=== PATIENT | male | born 1950 | race Caucasian/White ===

== ENCOUNTER → 2017-07-27 | Outpatient (CLI) | payer OTHER ==
[~2017-07-27] VITALS: Ht 172.7 cm; Wt 83.9 kg
[~2017-07-27] MED LIST: ALLEGRA180 MG OR; ASPIR 8181 M1 PO; CRESTOR20 MG PO; DIOVAN160 MG OR; FISHOIL OR; FLOVENT DISKUS50 MCG IH; HYDROCHLOROTH12.5 M1 PO; INVOKANA300 MG PO; JANUMET 50-1,01 EACH OR; MAGOX 400400 MG PO; METFORMIN HCL500 MG PO; OMEPRAZOLE20 M2 OR; PROSCAR 5MG TABL5 M1 OR; RELAFEN750 MG OR; SIMVASTATIN40 MG OR; TOPROL XL25 MG PO; TRAZODONE HCL100 MG PO; ZINC CHELATE50 MG PO
--- NOTE | ~2017-07-27 | HPC ---
[facility] [address] [place] [address] PAIN MANAGEMENT CONSULTATION Name: TABBYОЛЕГ Noel Room #: REG JOY Dominick#: [id number] Admission: 07/27/17 Attend Phys: Ashutosh Rashid DO Discharge: Date of : 48 Report #: [id number] THIS REPORT FOR: //name// CC: Ashutosh Varela MD DATE OF SERVICE: 07/27/2017 REFERRING PHYSICIAN: Anderson Varela M.D. CHIEF COMPLAINT: Low back pain, right lower extremity pain and paresthesias. HISTORY OF PRESENT ILLNESS: As you know, the patient is a very pleasant 66-year-old male who has reported low back pain, right lower extremity pain with paresthesias that began in May 2017. The patient denies injury or trauma that may have led to symptom development. The patient has trialed conservative medical therapy. Stretching exercises at home but this was ineffective at pain control. He ultimately discussed his case further with his primary care physician who indicated that he should be seen by pain management as there was some concern of a lumbar radiculopathy. The patient indicates today pain is continuous, describes the pain as shooting, aching, places current pain score 7/10, daily average is 7/10, worst pain has been is 10/10. The patient states the pain is present throughout the day. Nothing appears to improve and nothing appears to change it. He has been referred to our service to discuss treatment options for suspected lumbar radiculopathy. PAST MEDICAL HISTORY: 1. Diabetes mellitus type 2. 2. Hypertension. 3. Degenerative joint disease. 4. Osteoarthritis. PAST SURGICAL HISTORY: See attached in chart. SOCIAL HISTORY: The patient denies tobacco, alcohol, IV or illicit drug use. He is retired, retired years ago. He is not receiving workmen's compensation nor is trying to obtain disability benefits. Unaccompanied today. REVIEW OF SYSTEMS: Positive for cataracts, non-insulin dependent diabetes, hypertension, dyslipidemia, low back pain and gastroesophageal reflux disease. All other review of systems negative per 12-point review of systems other than those listed in history of present illness. PAIN IMPACT SCORE: /70 indicating [id number] interference of daily activities secondary to pain. [facility] [address] [place] [address] PAIN MANAGEMENT CONSULTATION Name: TABBYОЛЕГ [id number] Admission: 07/27/17 Attend Phys: Ashutosh Rashid DO Discharge: Date of : 48 Report #: [id number] ALLERGIES: No known drug allergies. CURRENT MEDICATIONS: Trazodone 100 mg p.o. at bedtime, metformin 500 mg twice a day, hydrochlorothiazide 12.5 mg once a day, Invokana 300 mg once a day, aspirin 81 mg per day, magnesium oxide 400 mg a day, zinc 50 mg once a day, lovastatin 20 mg per day and metoprolol 25 mg per day. IMAGING DATA: No imaging available. PHYSICAL EXAMINATION: VITAL SIGNS: Blood pressure 138/72, pulse is 63 and respiratory rate 16 and unlabored. The patient is 97% on room air. Height 5 feet 8 inches tall, weight 185 pounds and BMI calculated 28.1. GENERAL: Well-developed, well-nourished, well-hydrated, 66-year-old male. He appears his stated age. He is placing current pain score around 7/10. HEENT: Normocephalic and atraumatic. Pupils equal, round and reactive to light. Extraocular muscles are intact. Sclerae nonicteric without injection. NEUROLOGICAL: Cranial nerves 2 through 12 grossly intact. LUNGS: Clear. No wheeze, rhonchi or rales. CARDIOVASCULAR: Regular. No appreciable gallop or rub. ABDOMEN: Soft, nontender and nondistended. Normoactive bowel sounds. EXTREMITIES: Show no clubbing, no cyanosis and no edema. MUSCULOSKELETAL: Lower extremity strength appears equal and symmetrical 5/5, intact to light touch from L1 through S2 dermatomes. Seated straight leg raising negative. Supine straight leg raising positive right. Gal's test negative. Modified Gaenslen's positive for axial low back pain. Ankle clonus negative. Babinski is negative. Gait slightly antalgic favoring right lower extremity over left. The patient able to toe walk and heel walk without complications. Deep tendon reflexes at patella and Achilles equal and symmetrical. ASSESSMENT: 1. Symptomatic lumbar radiculopathy. 2. Lumbosacral spondylosis with radiculopathy. 3. Foraminal stenosis of the lumbar spine. 4. Chronic intractable pain. PLAN: 1. The patient has been referred to our clinic by his primary care physician, Dr. Anderson Varela for evaluation for suspected lumbar radiculopathy. Given the findings on physical exam and the history he provides, the description the patient uses in regards to the pain as well as the distribution of the pain itself like source of the patient's pain is lumbar radiculopathy. I do not have imaging available to determine the extent of pathology that is present, though the distribution of symptoms would correlate to an L5 dermatomal distribution on [address] [address] PAIN MANAGEMENT CONSULTATION Name: ОЛЕГ MCNAIR Room #: REG CLI Dominick#: [id number] Admission: 07/27/17 Attend Phys: Ashutosh NoelYossi Rashid DO Discharge: Date of : 48 Report #: [id number] the right. The patient and I discussed at length today the treatment options for his suspected lumbar radiculopathy. We discussed physical therapy, stretching exercise and core strengthening. We discussed medication management, the addition of a neuropathic pain medication and consistent nonsteroidal anti-inflammatory. We discussed epidural injections under fluoroscopic guidance for which the patient was referred to our clinic. We also discussed spinal cord stimulator and surgical options. After reviewing risks and benefits of all proposed treatment options, the patient chose to begin with an epidural injection under fluoroscopic guidance. The patient was advised risks and benefits of a lumbar epidural injection. These risks include but not necessarily limited to bleeding, bruising, infection, worsening pain, no relief of pain, also risk of temporary or permanent muscle weakness, temporary or permanent nerve damage, possible paralysis and . The patient states understood and wished to proceed. 2. No medication changes were made at today's visit. The patient to continue current medical therapy as previously prescribed. 3. The patient to return to our clinic in one month. At that time, review the efficacy of today's epidural injection and determine if next in the series of epidural injections would be necessary. 4. We wish to thank Dr. Varela for the referral of this patient to our clinic. We will keep you apprised of his response to treatment as we address his ongoing lumbar radicular symptoms. Again, we wish to thank you for the opportunity to participate in his care. PROCEDURE NOTE DESCRIPTION OF PROCEDURE: Lumbar epidural steroid injection under fluoroscopic guidance. This is the first procedure of the first series that the patient is undergoing. After obtaining written consent, the patient was taken back to the fluoroscopy suite, placed in a prone position with pillow under the abdomen to decrease lumbar lordosis. The skin overlying the lumbosacral area was then prepped and draped in aseptic fashion. The lumbar vertebral interspace was then identified by AP fluoroscopy. The skin and subcutaneous tissue overlying the target site of injection was anesthetized with 3 mL 1% lidocaine. A 20-guage 3-1/2 inch Tuohy needle was then advanced under fluoroscopic guidance towards the epidural space using a paramedian approach. The epidural space was identified using loss of resistance to air technique. After negative aspiration for heme or cerebrospinal fluid, a total of 1 mL of Omnipaque was injected. A lumbar epidurogram was confirmed using both AP and lateral fluoroscopy. After negative aspiration for heme or cerebrospinal fluid, 5 mL of a solution containing 2 mL, 40 mg per mL, 80 mg total triamcinolone, 3 mL lidocaine 1% was injected in increments. Contrast spread was noted posterior epidural space. [address] [address] PAIN MANAGEMENT CONSULTATION Name: ОЛЕГ MCNAIR Room #: REG JOY Tan#: [id number] Admission: 07/27/17 Attend Phys: Ashutosh Rashid DO Discharge: Date of : 48 Report #: [id number] The needle was then retracted approximately half way and needle tract flushed with 1 mL of 1% lidocaine. Needle was then removed. There were no apparent sensory or motor deficits in the lower extremity following the procedure. A sterile bandage was placed over the injection site. The heart rate, pulse, oximetry and blood pressure were continuously monitored after the procedure. There were no apparent complications. The patient tolerated the procedure well and was carefully escorted to the recovery room in stable condition. There were no apparent complications. After meeting discharge criteria, the patient was then discharged home. <ELECTRONICALLY SIGNED> By: Ashutosh Rashid DO 08/01/17 0812 [id number] Ashutosh Rashid DO /nt
[2017-07-27 08:39] VITALS: BP 138/72
== END | disposition home or self-care (01) ==
LOC: PAIN 07:06
DX: M47.27 Other spondylosis with radiculopathy, lumbosacral region (principal); M48.061 Spinal stenosis, lumbar region without neurogenic claudication; G89.29 Other chronic pain; I10 Essential (primary) hypertension; E11.9 Type 2 diabetes mellitus without complications; M19.90 Unspecified osteoarthritis, unspecified site; E78.5 Hyperlipidemia, unspecified; K21.9 Gastro-esophageal reflux disease without esophagitis; Z79.899 Other long term (current) drug therapy; Z98.890 Other specified postprocedural states; Z98.49 Cataract extraction status, unspecified eye; Z79.82 Long term (current) use of aspirin

== ENCOUNTER → 2021-03-25 | Outpatient (CLI) | payer OTHER ==
[~2021-03-25] VITALS: Ht 172.7 cm; Wt 81.6 kg
[~2021-03-25] MED LIST changes: +DUTASTERIDE0.5 MG PO; +FLONASE 0.05%50 MCG NARES; +SYNJARDY XR 121 EACH PO; +VITAMIN D3 PO
--- NOTE | ~2021-03-25 | HPC ---
[facility] [place] [address] [address] PAIN MANAGEMENT CONSULTATION Name: TABBYОЛЕГ Noel Room #: REG JOY Dominick#: [id number] Admission: 03/25/21 Attend Phys: Ashutosh Rashid DO Discharge: Date of : 48 Report #: [id number] THIS REPORT FOR: cc: Anderson Varela MD, Daniel B. MD Johnson, James E. DO ~ cc: Alex Hunt MD DATE OF SERVICE: 03/25/2021 CHIEF COMPLAINT: Low back pain, right lower extremity pain with paresthesias. HISTORY OF PRESENT ILLNESS: As you know, the patient is a pleasant 70-year-old male with longstanding history of lumbar radicular symptoms involving the low back and right lower extremity. The patient indicates pain began spontaneously without inciting injury or trauma somewhere around 01/27/2021. He states pain began initially in the low back and buttock area, radiated down the right leg to the knee. He has had on and off symptoms that have gone on for years. He has had epidural injections in the past, the most recent with our services was in 2017 with near complete resolution of symptoms until just recently. The patient states he is very active, going about daily activities and golfing. He has been referred back to our service to discuss treatment options for suspected lumbar radiculopathy. The patient indicates today his pain is rhythmic. He describes the pain as shooting, aching, sharp, numbness, tingling and tender. Places current pain score at 8/10, daily average at 8-10/10, worst pain has been is 10/10. The patient reports pain is exacerbated with walking and sitting and improves with nothing to date. He has been referred to our clinic to discuss treatment options for suspected recurrent lumbar radiculopathy without inciting injury or trauma. PAST MEDICAL HISTORY: 1. Diabetes mellitus type 2. 2. Seasonal allergies. 3. Hypertension. 4. Dyslipidemia. 5. Coronary artery disease status post percutaneous stenting. PAST SURGICAL HISTORY: 1. Carpal tunnel release. 2. Herniorrhaphy x 2. 3. Rotator cuff surgery x 2. 4. Percutaneous coronary artery stenting x 3. SOCIAL HISTORY: The patient denies tobacco use. Denies IV or illicit drug use. Denies any chronic alcohol use. He is retired, [place] [address] PAIN MANAGEMENT CONSULTATION Name: ОЛЕГ MCNAIR Room #: REG CLKarol Tan#: [id number] Admission: 03/25/21 Attend Phys: Ashutosh Rashid DO Discharge: Date of : 48 Report #: [id number] accompanied by his , present in room today. He is not receiving disability income. He is not in litigation in regards to pain. REVIEW OF SYSTEMS: Positive for fatigue and weakness, wearing corrective eyewear, coronary artery disease status post percutaneous stenting, memory loss with confusion, non-insulin dependent diabetes, hypertension and dyslipidemia. All other review of systems negative per 12-point review of systems other than those listed in history of present illness. Pain impact score 43/70, moderate to severe interference of daily activities secondary to pain. ALLERGIES: No known drug allergies. CURRENT MEDICATIONS: Vitamin D 2000 units once a day, dutasteride 0.5 mg once a day, Synjardy XR 12.12/999 mg twice a day, fluticasone 2 sprays each nostril per day, trazodone 100 mg per day, hydrochlorothiazide 12.5 mg once a day, aspirin 81 mg per day, magnesium oxide 400 mg per day, zinc 50 mg once a day, rosuvastatin 20 mg per day, metoprolol 50 mg p.o. at bedtime, omega-3 fish oil 1 tab per day. IMAGING: X-ray of the lumbar spine shows grade 1 retrolisthesis of L2 on L3. PQRS: The patient has known arthritic changes of the lumbar spine, bilateral shoulders, bilateral hips and knees. No rheumatoid arthritis. The patient is placing current pain score anywhere from 8-10/10. He is not a fall risk, has not had a fall in the last 3 months. He is not on blood thinners, but is treated for hypertension. He is on no opioids, and has a low to moderate addiction potential based on assessment tool. Pain impact is 43/70, moderate interference of daily activities secondary to pain. PHYSICAL EXAMINATION: VITAL SIGNS: Blood pressure 124/67, pulse 63, respiratory rate 14 and unlabored. The patient 100% on room air. Height 5 feet 8 inches tall, weight 180 pounds, BMI calculated 27.4. GENERAL: Well-developed, well-nourished, well-hydrated 70-year-old male, appearing stated age, pain is rated anywhere from 8-10/10. HEENT: Normocephalic, atraumatic. Pupils equal, round and responsive. He is wearing a mask in compliance with COVID-19 regulations. LUNGS: Clear; no wheeze, rhonchi or rales. CARDIOVASCULAR: Regular. No appreciable gallop, no rub. ABDOMEN: Soft. EXTREMITIES: Show no clubbing, no cyanosis, no edema. MUSCULOSKELETAL: Lower extremity strength equal and symmetrical 5/5 intact to light touch from L1 through S2 dermatomes. Seated straight leg raising negative. Supine straight leg raising positive on the right approximately 70-degree angle. Ankle clonus negative. Babinski is negative. Gait appears mildly antalgic favoring right lower extremity over left. Muscle bulk, tone is [facility] [address] [place] [address] PAIN MANAGEMENT CONSULTATION Name: ОЛЕГ MCNAIR Room #: REG Karol Abernathy.#: [id number] Admission: 03/25/21 Attend Phys: Ashutosh Rashid DO Discharge: Date of : 48 Report #: [id number] equal and symmetrical in lower extremities. Lumbar provocation testing is met with slight increase in axial back pain. ASSESSMENT: 1. Symptomatic lumbar radiculopathy. 2. Lumbosacral spondylosis with radiculopathy. 3. Chronic low back pain. PLAN: 1. Based on today's physical exam, the history the patient has provided, the description the patient uses in regards to pain, it would appear he is suffering from lumbar radiculopathy. The distribution of symptoms at present appears to be upon the L4-L5 nerve roots on the right. We have discussed with the patient the treatment options. We did have x-ray imaging, which provides us little or no information in regards to the distribution of symptoms currently displayed in his physical exam. X-ray imaging is very helpful for fractures, but has little clinical benefit in regards to soft tissue issues. After the discussion of the findings on physical exam and how they correlate to lumbar radiculopathy, we then discussed the treatment options. The following was discussed with the patient today: We discussed physical therapy, stretching exercises and core strengthening as a treatment approach. He has been doing home exercises provided through his primary care physician. He has noted no improvement in symptoms with this therapy. We discussed medication management with suggestions of treatment to add neuropathic medications such as amitriptyline, nortriptyline, Cymbalta, Lyrica or gabapentin. We discussed lumbar epidural injection under fluoroscopic guidance, which have been successful at alleviating symptoms in the past based on his prior history. We discussed surgical options with the patient including a spinal cord stimulator and surgical decompression. After reviewing risks and benefits of all proposed treatment options, the patient chose to move forward with a lumbar epidural injection under fluoroscopic guidance. 2. The patient was advised risks and benefits of a lumbar epidural injection. These risks include but are not necessarily limited to bleeding, bruising, infection, worsening pain, no relief of pain, also risk of temporary or permanent muscle weakness, temporary or permanent nerve damage, possible paralysis, and . The patient states he understood and wished to proceed. 3. No medication changes made at today's visit. The patient will continue current medical therapy as prior prescribed. 4. We will see the patient back in a followup visit in 30 days. At that time, review the efficacy of today's epidural injection. I did advise the patient if he does not note improvement in symptoms with the epidural injection that a more definitive imaging such as MRI would be recommended. He will be following up with his PCP in regards to this request. If the patient does undergo MRI he is to contact our clinic to advise us to look for those findings. [address] [address] PAIN MANAGEMENT CONSULTATION Name: ОЛЕГ MCNAIR Room #: REG JOY Tan#: [id number] Admission: 03/25/21 Attend Phys: Ashutosh Rashid DO Discharge: Date of : 48 Report #: [id number] 5. We wish to thank the referring physician, Dr. Alex Hunt for the opportunity to see the patient in consultation. We will keep you apprised of response to treatment as we address lumbar radicular symptoms. Again, we wish to thank you for the opportunity to see the patient in consultation. PROCEDURE NOTE: DESCRIPTION OF PROCEDURE: L5-S1 right paramedian epidural steroid injection under fluoroscopic guidance. This is the first procedure of the first series that the patient is undergoing. After obtaining written consent, the patient was taken back to the fluoroscopy suite, placed in a prone position with pillow under the abdomen to decrease lumbar lordosis. The skin overlying the lumbosacral area was then prepped and draped in aseptic fashion. The L5-S1 vertebral interspace was then identified by AP fluoroscopy. The skin and subcutaneous tissue overlying the target site of injection was anesthetized with 3 mL 1% lidocaine. A 20-gauge 3.5-inch Tuohy needle was then advanced under fluoroscopic guidance towards the epidural space using a right paramedian approach. The epidural space was identified using loss of resistance to air technique. After negative aspiration for heme or cerebrospinal fluid, a total of 1 mL of Omnipaque was injected. A lumbar epidurogram was confirmed using both AP and lateral fluoroscopy. After negative aspiration for heme or cerebrospinal fluid, 5 mL of a solution containing 2 mL 40 mg per mL 80 mg total triamcinolone along with 3 mL of lidocaine 1% was injected in increments. Contrast spread was noted in posterior epidural space. The needle was then retracted approximately half way and needle tract flushed with 1 mL of 1% lidocaine. Needle was then removed. There were no apparent sensory or motor deficits in the lower extremity following the procedure. A sterile bandage was placed over the injection site. The heart rate, pulse, oximetry and blood pressure were continuously monitored after the procedure. There were no apparent complications. The patient tolerated the procedure well and was carefully escorted to the recovery room in stable condition. There were no apparent complications. After meeting discharge criteria, the patient was then discharged home. By: 0930 [id number] Ashutosh Rashid DO /nt
[2021-03-25 08:22] VITALS: BP 124/67
--- NOTE | 2021-03-25 09:10 | NUR ---
Pain Clinic Assessment: 1. History of Osteoarthritis: ALL OVER FROM [facility] History of Rheumatoid Arthritis: NONE 2. Height: 5 ft. 8 in. 172.7 cm. Weight: 180.0 lb. oz. 81.648 kg. Patient's BMI: 27.4 3. Vital Signs: BP: 124/67 Pulse: 63 Resp: 14 Temp: 02 Sat: 100 ECG Mon: 4. Pain Intensity: 8 TO 10 5. Fall Risk: Dizziness: N Needs help standing or walking: N Fallen in the last 3 months: N Fall risk comments: 6. Patient on Blood Thinner: None 7. History of Hypertension: Y 8. Opioid Therapy greater than 6 weeks: N Opiate Contract Signed: 9. Risk Assessment Tool Provided: LOW-3 10. Functional Assessment Tool: 43/70 11. Recreational Drug Use: Never Drug Type: Tobacco Use: Former Smoker Tobacco Type: Amount or Packs/day: How Many Years: Alcohol Use: Past use Frequency: Quant: SOBER X 10YRS
== END | disposition home or self-care (01) ==
LOC: PAIN 06:52
PROVIDERS: ATTEND Anesthesiology Pain Medicine
DX: M47.27 Other spondylosis with radiculopathy, lumbosacral region (principal); G89.29 Other chronic pain; I10 Essential (primary) hypertension; I25.10 Atherosclerotic heart disease of native coronary artery without angina pectoris; E11.9 Type 2 diabetes mellitus without complications; E78.5 Hyperlipidemia, unspecified; M19.90 Unspecified osteoarthritis, unspecified site; Z98.890 Other specified postprocedural states; Z79.899 Other long term (current) drug therapy

== ENCOUNTER → 2021-04-16 | Outpatient (CLI) | payer OTHER | LOC: MRI 14:03 | PROVIDERS: ATTEND Anesthesiology Pain Medicine | DX: M51.16 Intervertebral disc disorders with radiculopathy, lumbar region (principal); M48.061 Spinal stenosis, lumbar region without neurogenic claudication; M51.17 Intervertebral disc disorders with radiculopathy, lumbosacral region ==

== ENCOUNTER → 2021-04-22 | Outpatient (CLI) | payer OTHER ==
[~2021-04-22] VITALS: Ht 172.7 cm; Wt 81.3 kg
[2021-04-22 07:56] VITALS: BP 119/57
--- NOTE | 2021-04-22 08:05 | NUR ---
Pain Clinic Assessment: 1. History of Osteoarthritis: ALL OVER FROM [facility] History of Rheumatoid Arthritis: NONE 2. Height: 5 ft. 8 in. 172.7 cm. Weight: 179.2 lb. oz. 81.285 kg. Patient's BMI: 27.3 3. Vital Signs: BP: 119/57 Pulse: 60 Resp: 14 Temp: 02 Sat: 100 ECG Mon: 4. Pain Intensity: 6 5. Fall Risk: Dizziness: N Needs help standing or walking: N Fallen in the last 3 months: N Fall risk comments: 6. Patient on Blood Thinner: None 7. History of Hypertension: Y 8. Opioid Therapy greater than 6 weeks: N Opiate Contract Signed: 9. Risk Assessment Tool Provided: LOW-3 10. Functional Assessment Tool: 43 11. Recreational Drug Use: Never Drug Type: Tobacco Use: Former Smoker Tobacco Type: Amount or Packs/day: How Many Years: Alcohol Use: Past use Frequency: Quant:
--- NOTE | 2021-04-22 10:47 | HPC ---
[facility] [place] [address] PAIN MANAGEMENT CONSULTATION Name: ОЛЕГ MCNAIR Room #: REG JOY MartinezYossiCoryYossi#: [id number] Admission: 04/22/21 Attend Phys: Ashutosh Rashid DO Discharge: Date of : 48 Report #: [id number] THIS REPORT FOR: cc: Anderson Varela MD,Ashutosh Marcum MD, DO ~ cc: Anderson Varela MD DATE OF SERVICE: 04/22/2021 REFERRING PHYSICIAN: Anderson Varela MD CHIEF COMPLAINT: Low back pain, right lower extremity pain with paresthesias. HISTORY OF PRESENT ILLNESS: As you know, the patient is a very pleasant 70-year-old male with longstanding history of lumbar radicular symptoms involving low back and right lower extremity. The patient states pain began spontaneously. No inciting injury or trauma. He was seen in consultation per the request of his primary care physician, undergoing a lumbar epidural injection under fluoroscopic guidance for which he reports 80% improvement in overall pain lasting for approximately a week to week and a half for the slow and progressive return of symptoms. He denied any injury or trauma. He is placing pain today no greater than 6/10. He describes the pain as shooting, sharp tenderness, aching, constant, and rhythmic. He returns today in followup visit to undergo next in the series of lumbar epidural injections. The patient also reports that during undergoing MRI of the lumbar spine on 04/15, he began to experience pain in the right posterolateral thigh and a mass occurred at the area, enlarged to the size of approximately a tennis ball and has reduced in size slightly, but is extremely tender to touch and is painful on a daily basis. He wishes further evaluation in regards to this issue as well. The patient denies injury or trauma to the area that may have caused the symptoms to develop. ALLERGIES: No known drug allergies. CURRENT MEDICATIONS: See chart. SOCIAL HISTORY: The patient denies tobacco use. Denies IV or illicit drug use. Denies any chronic alcohol use. He is retired, retired years ago, accompanied by his , present in room today. IMAGING: MRI of the lumbar spine obtained 04/16/2021 shows L1-2 unremarkable. L2-3 shows no focal disk protrusion, mild disk bulging, moderate facet arthropathy. Moderate inferior bilateral foraminal encroachment. Central canal is maintained. L3-4 shows moderate diffuse disk bulge extending into lateral recess and neural foramen. Moderate bilateral neural foraminal encroachment, greater on the left. Mild to moderate right degenerative changes. AP diameters [address] [address] PAIN MANAGEMENT CONSULTATION Name: TABBYОЛЕГ TAVO Room #: REG CL Michela.#: [id number] Admission: 04/22/21 Attend Phys: Ashutosh Rashid DO Discharge: Date of : 48 Report #: [id number] of the canal is well maintained. L4-5 shows diffuse moderate bilateral facet spurring and degenerative changes, moderate left foraminal encroachment and right foramen mildly narrowed. Central canal measures 12 mm. L5-S1 is unremarkable. PHYSICAL EXAMINATION: VITAL SIGNS: Blood pressure 119/57, pulse 60, respiratory rate 14 and unlabored. The patient 100% on room air. Height 5 feet 8 inches tall, weight 179.2 pounds, BMI calculated 27.3. GENERAL: Well-developed, well-nourished, well-hydrated 70-year-old male appearing his stated age, placing current pain score 6/10. HEENT: Normocephalic, atraumatic. Pupils equal, round and responsive to light. Speech is fluent. The patient deemed a good historian. He is wearing a mask in compliance with COVID-19 regulations. EXTREMITIES: Show no clubbing, no cyanosis, no edema. MUSCULOSKELETAL: Lower extremity strength appears symmetrical again today, 5/5. Intact to light touch from L1 through S2 dermatomes. Seated straight leg raising negative. Supine straight leg raising positive on the right. HO test is negative. Modified Gaenslen's positive for axial low back pain. Ankle clonus negative. Babinski is negative. He does have a slightly antalgic gait favoring right lower extremity over left. The patient also has palpatory tenderness over a discrete area of the posterolateral thigh overlying musculature. There is tenderness to palpation of the area. There is no erythema. The area is not elevated in temperature with touch. Though deep palpation causes severe intensification of pain. This is a circumscribed area, does not fit with myofascial symptoms. ASSESSMENT: 1. Chronic lumbar radiculopathy. 2. Lumbosacral spondylosis with radiculopathy. 3. Right posterolateral thigh mass with acute onset. 4. Chronic intractable pain. PLAN: 1. In regards to the patient's acute onset of right posterolateral thigh mass, I am concerned that this may be vascular in origin. It could be a superficial venous congestion leading to a clot formation. The patient reports extremely tender to palpation. There is a discrete area of symptoms that caused the patient's symptoms. I recommend ultrasound of the area. The patient was going to be following up with his PCP, but I have taken the liberty of sending the patient over for ultrasound directly. The patient will undergo the ultrasound. We will review those findings once they are available to address this posterolateral thigh mass that acutely occurred after his MRI. 2. The patient has been consented and we will perform a lumbar epidural injection under fluoroscopic guidance. The patient has requested the epidural injection as he did notice good benefit with the initial injection, but [address] [address] PAIN MANAGEMENT CONSULTATION Name: ОЛЕГ MCNAIR Room #: REG JOY Tan#: [id number] Admission: 04/22/21 Attend Phys: Ashutosh Rashid DO Discharge: Date of : 48 Report #: [id number] unfortunately his symptoms have begun to return. He returns for that procedure today. He has been advised risks and benefits, states understood and wished to proceed. 3. No medication changes made at today's visit. The patient will continue current medical therapy as prior prescribed. 4. I plan to see the patient back in followup visit on an as needed basis for the next in the series of epidural injections. We did advise the patient we will contact him with the ultrasound findings once they have been completed. DESCRIPTION OF PROCEDURE: L4-5 right parasagittal epidural steroid injection under fluoroscopic guidance. This is the second procedure of the first series that the patient is undergoing. After obtaining written consent, the patient was taken back to the fluoroscopy suite, placed in a prone position with pillow under the abdomen to decrease lumbar lordosis. The skin overlying the lumbosacral area was then prepped and draped in aseptic fashion. The L4-5 vertebral interspace was then identified by AP fluoroscopy. The skin and subcutaneous tissue overlying the target site of injection was anesthetized with 3 mL 1% lidocaine. A 20-gauge 3-1/2-inch Tuohy needle was then advanced under fluoroscopic guidance towards the epidural space using a right parasagittal approach. The epidural space was identified using loss of resistance to air technique. After negative aspiration for heme or cerebrospinal fluid, a total of 1 mL of Omnipaque was injected. A lumbar epidurogram was confirmed using both AP and lateral fluoroscopy. After negative aspiration for heme or cerebrospinal fluid, 5 mL of a solution containing 2 mL 40 mg per mL 80 mg total triamcinolone along with 3 mL of lidocaine 1% was injected in increments. Contrast spread was noted in the posterior epidural space. The needle was then retracted approximately half way and needle tract flushed with 1 mL of 1% lidocaine. Needle was then removed. There were no apparent sensory or motor deficits in the lower extremity following the procedure. A sterile bandage was placed over the injection site. The heart rate, pulse, oximetry and blood pressure were continuously monitored after the procedure. There were no apparent complications. The patient tolerated the procedure well and was carefully escorted to the recovery room in stable condition. There were no apparent complications. After meeting discharge criteria, the patient was then discharged home. <ELECTRONICALLY SIGNED> By: Ashutosh Rahsid DO 04/22/21 [id number] Ashutosh Rashid DO /nt
== END | disposition home or self-care (01) ==
LOC: PAIN 06:45
PROVIDERS: ATTEND Anesthesiology Pain Medicine
DX: M51.16 Intervertebral disc disorders with radiculopathy, lumbar region (principal); M47.27 Other spondylosis with radiculopathy, lumbosacral region; G89.29 Other chronic pain; Z98.890 Other specified postprocedural states; Z79.899 Other long term (current) drug therapy; Z87.891 Personal history of nicotine dependence